=== PATIENT | female | born 1960 | race Caucasian/White ===

== ENCOUNTER 2019-08-19 07:04 | Day surgery (SDC) | payer OTHER ==
[~2019-08-19 07:04] MED LIST: ACETAMINOPHEN 325 MG TABLET PO PRN; CEFOXITIN SODIUM 2 GM in DEXTROSE 5%-WATER 100 ML IV PRN; IBUPROFEN 800 MG in NORMAL SALINE 250 ML IV PRN; PREGABALIN 50 MG CAPSULE PO PRN
[2019-08-19] MEDS ORDERED: PREGABALIN 50 MG CAPSULE ONE (07:36)
[2019-08-19] MEDS ORDERED: ACETAMINOPHEN 325 MG TABLET ONE ×2 (07:42→07:43)
[2019-08-19] MEDS ORDERED: MIDAZOLAM 2 MG/2 ML INJ ONE (08:33)
[2019-08-19] MEDS ORDERED: ONDANSETRON HCL INJ/PF 4 MG/2 ML SDV ONE (08:33)
[2019-08-19] MEDS ORDERED: FENTANYL CITRATE INJ/PF 100 MCG/2 ML AMPUL ONE (08:33)
[2019-08-19] MEDS ORDERED: DEXAMETHASONE SOD PHOS INJ 10 MG/1 ML VIAL ONE (08:34)
[2019-08-19] MEDS ORDERED: SUCCINYLCHOLINE CHLORIDE INJ 200 MG/10 ML VIAL ONE (08:34)
[2019-08-19] MEDS ORDERED: PROPOFOL INJ 200 MG/20 ML VIAL IV ONE (08:34)
[2019-08-19] MEDS ORDERED: METHYLERGONOVINE MALEATE INJ/PF 0.2 MG/1 ML AMPULE ONE (08:36)
[2019-08-19] MEDS ORDERED: BUPIVACAINE HCL 0.5 % INJ/PF 30 ML SDV ONE (08:37)
[2019-08-19] MEDS ORDERED: LIDOCAINE 1% INJ-PF (10 MG/ML) 30 ML SDV ONE (08:37)
[2019-08-19] MEDS ORDERED: BUPIVACAINE INJ/PF LIPOSOME/PF 266 MG/20 ML SDV ONE (09:16)
[2019-08-19] MEDS ORDERED: EPHEDRINE SULFATE INJ 50 MG/1 ML AMPULE ONE (09:29)
[2019-08-19] MEDS ORDERED: LIDOCAINE 2% JELLY 30 ML TUBE ONE (09:35)
[2019-08-19] MEDS ORDERED: BACITRACIN ZINC OINTMENT 15 GM ONE (09:35)
--- NOTE | 2019-08-19 09:54 | Discharge Summary ---
Discharge Summary (SDC) - Discharge Final Diagnosis: Anal condyloma Date of Surgery: 08/19/19 Discharge Date: 08/19/19 Condition: Stable Forms: [facility] Discharge Plan Treatment or Instructions: Discharge home. Diet as tolerated. Activity: Nonstrenuous. Follow-up with me in 7 days. [place] 10/325 mg p.o. every 6 hours as needed for pain. Ibuprofen 800 mg p.o. 3 times daily with meals. 5% lidocaine ointment to rectum 3 times daily. Neosporin [id number] ointment to rectum 3 times daily. Warm sits baths in soapy water twice daily and after bowel movements. Colace stool softe ner 2 tablets p.o. twice daily. Fiber supplement twice daily. Referrals: JESSICA PHILLIPS MD [ACTIVE STAFF] - Discharge Diet: As Tolerated Respiratory Treatments at Home: Deep Breathing/Coughing, Incentive Spirometer Discharge Activity: Balance Activity w/Rest Home Care Assistance: None Needed Report the Following to Your Physician Immediately: Shortness of Breath, Nausea, Vomiting, Increase in Pain, Fever over 101 Degrees, Unusual Bleeding, Redness
--- NOTE | 2019-08-19 09:57 | Operative Report ---
Nonrecallable Operative Report DATE OF SURGERY: 08/19/19 PREOPERATIVE DIAGNOSIS: Anal condyloma POSTOPERATIVE DIAGNOSIS: Anal condyloma OPERATION: Excision and fulguration of anal condyloma x6 SURGEON: JESSICA PHILLIPS ANESTHESIA: GA TISSUE REMOVED OR ALTERED: Anal condyloma COMPLICATIONS: None apparent ESTIMATED BLOOD LOSS: Minimal PROCEDURE: Procedure in detail: After informed consent was obtained, the patient was brought to the operating room and laid in the prone jackknife position. The area of the perianal skin and rectum were prepped and draped in a normal sterile fashion. Exparel was used for local anesthesia. There were 5 separate anal condyloma present externally. These were excised and the base was fulgurated. The defects were then loosely approximated using a subcutaneous 3-0 Vicryl suture. Once this was completed, a Hill-Molina retractor was inserted into the rectum. One small, suspicious area was present in the posterior position. This was cauterized. After this was completed, a dressing was fashioned, and the procedure was concluded. All sponge, instrument, and needle counts were correct x2. Condition: Stable.
== END 2019-08-19 11:05 | disposition home or self-care (01) ==
LOC: SC 07:04
PROVIDERS: ATTEND Surgery
DX: A63.0 Anogenital (venereal) warts (principal); J45.909 Unspecified asthma, uncomplicated; I10 Essential (primary) hypertension; K21.9 Gastro-esophageal reflux disease without esophagitis; Z79.899 Other long term (current) drug therapy
CPT/HCPCS: 88305 ×2; 46922; J2250; J3490 ×3; J3010; J0330; J2405; J7060; J7050; J2704; J1100; C9290; J1741; J0694; 902; J2210